=== PATIENT | male | born 1980 | race Hispanic/Latino ===

== ENCOUNTER 2021-01-14 23:37 | Emergency (ER) | payer OTHER ==
[~2021-01-14] VITALS: Ht 185.4 cm; Wt 86.4 kg
[2021-01-14] MEDS ORDERED: AMOX/K CLAV875 M1 PO (23:58)
[2021-01-15 00:12] VITALS: BP 134/94
== END 2021-01-15 00:12 | DRG 605 ==
LOC: ED 23:37
DX: S60.477A Other superficial bite of left little finger, initial encounter (principal); Y04.1XXA Assault by human bite, initial encounter; Y92.009 Unspecified place in unspecified non-institutional (private) residence as the place of occurrence of the external cause